=== PATIENT | female | born 1950 | race Caucasian/White ===

== ENCOUNTER 2020-12-26 10:00 | Emergency (ER) | payer MEDICARE ==
[2020-12-26] MEDS ORDERED: Diazepam 5 MG TAB ONE (11:06)
== END 2020-12-26 10:41 | disposition home or self-care (01) ==
LOC: BURERS 10:00
DX: M62.838 Other muscle spasm (principal); I10 Essential (primary) hypertension
CPT/HCPCS: 99282

== ENCOUNTER 2021-03-28 13:33 | Emergency (ER) | payer MEDICARE ==
[2021-03-28] MEDS ORDERED: Nitroglycerin 0.4 MG TAB 1 EACH ONE (13:44)
[2021-03-28] MEDS ORDERED: Aspirin Chewable 81 MG TAB ONE (13:51)
[2021-03-28 13:57] LABS: #Basophils 0.1 thou/uL (0.0-0.2); #Eosinphils 0.1 thou/uL (0.0-0.7); #Lymphocytes 1.7 thou/uL (1.20-3.40); #Monocytes 0.4 thou/uL (0.11-0.59); #Neutrophils 2.7 thou/uL (1.40-6.50); %Basophils 1.1 % (0.0-1.0); %Eosinophils 1.4 % (0.0-10.0); %Lymphocytes 34.2 % (21.0-51.0); %Monocytes 8.1 % (0.0-10.0); %Neutrophils 55.2 % (42.0-75.0); Hemoglobin 16.1 g/dL (12.0-16.0); Mean Corpuscular HGB CONC 32.3 g/dL (32.0-36.0); Mean Corpuscular Hemoglobin 29.8 pg (27.0-31.0); Mean Corpuscular Volume 92.1 fL (78.0-98.0); Mean Platelet Volume 6.7 fL (7.4-10.4); Platelet Count 236 thou/uL (130-400); RBC Distribution Width 12.5 % (11.5-14.5); White Blood Cell (WBC) Count 4.8 thou/uL (4.8-10.8)
[2021-03-28] MEDS ORDERED: Nitroglycerin 2% Ointment 1 INCH/1 GM Packet ONE (14:11)
[2021-03-28 14:16] LABS: ALT (SGPT) 18 U/L (8-55); AST (SGOT) 21 U/L (5-34); Albumin 4.4 g/dL (3.4-4.8); Alkaline Phosphatase 77 U/L (40-110); Anion Gap 16 mmol/L (10-20); BUN (Urea Nitrogen) 18 mg/dL (9.8-20.1); Bilirubin, Total 0.7 mg/dL (0.2-1.2); Calc. Creatinine Clearance 0 mL/min (70-130); Calcium 10.8 mg/dL (7.8-10.44); Carbon Dioxide 20 mmol/L (23-31); Chloride 109 mmol/L (98-107); Glucose 88 mg/dL (80-115); Lipase 25 U/L (8-78); Potassium 3.7 mmol/L (3.5-5.1); Protein, Total 6.4 g/dL (5.8-8.1); Sodium 141 mmol/L (136-145)
[2021-03-28 17:14] LABS: Lactic Acid 1.6 mmol/L (0.5-2.2)
[2021-03-28 17:19] LABS: SARS-CoV-2 NAA Rapid Test Not Detected (NotDetected)
[2021-03-28 17:22] LABS: Troponin I 0.017 ng/mL (< 0.028)
[2021-03-28 20:39] LABS: Troponin I Less than 0.010 ng/mL (< 0.028)
[2021-03-28] MEDS ORDERED: Acetaminophen 325 MG TAB ONE (21:22)
[2021-03-28] MEDS ORDERED: traZODone HCl 50 MG TAB PO SCH (23:00)
== END 2021-03-28 23:36 | disposition short-term general hospital (02) ==
LOC: BURERS 13:33
DX: R07.2 Precordial pain (principal); I10 Essential (primary) hypertension; Z20.822 Contact with and (suspected) exposure to COVID-19; Z79.82 Long term (current) use of aspirin; Z79.899 Other long term (current) drug therapy
CPT/HCPCS: 36415; 71045; 80053; 83605; 83690; 83880; 84484; 85025; 93005; U0002

== ENCOUNTER 2021-10-27 10:10 | Emergency (ER) | payer OTHER, MEDICARE | END 2021-10-27 11:49 | disposition home or self-care (01) | LOC: BURERS 10:10 | DX: S20.211A Contusion of right front wall of thorax, initial encounter (principal); I10 Essential (primary) hypertension; W22.8XXA Striking against or struck by other objects, initial encounter; Y92.830 Public park as the place of occurrence of the external cause | CPT/HCPCS: 71250 ==

== ENCOUNTER 2022-04-20 09:46 | Outpatient (CLI) | payer MEDICARE | END 2022-04-20 09:47 | disposition home or self-care (01) | LOC: BURCT 09:46 | PROVIDERS: ATTEND Family Medicine | DX: R26.81 Unsteadiness on feet (principal) | CPT/HCPCS: 70450 ==